=== PATIENT | male | born 1935 | race Native Hawaiian/Other Pacific Islander ===

== ENCOUNTER 2017-08-14 14:13 | Inpatient (IN) | payer BC, MEDICARE ==
[2017-08-14 14:13] VITALS: BMI 30.1
[2017-08-14 15:44] LABS: BASO # 0.1 K/uL (0.0-0.2); BASO % 1.3 % (0.0-2.0); EOS % 0.6 % (0.0-4.0); HEMOGLOBIN 13.9 g/dL (12.0-18.0); LYMPH # 0.8 K/uL (1.0-4.3); LYMPH % 16.1 % (20.0-40.0); MEAN CORPUSCULAR HEMOGLOBIN 31.2 pg (27.0-31.0); MEAN CORPUSCULAR HGB CONC 34.1 g/dL (33.0-37.0); MEAN PLATELET VOLUME 7.6 fL (7.2-11.7); MONO # 0.2 K/uL (0.0-0.8); MONO % 4.8 % (0.0-10.0); NEUT # 3.9 K/uL (1.8-7.0); NEUT % 77.2 % (50.0-75.0); RBC 4.46 Mil/uL (4.40-5.90); RED CELL DISTRIBUTION WIDTH 15.7 % (11.5-14.5); WHITE BLOOD COUNT 5.1 K/uL (4.8-10.8)
[2017-08-14 15:45] LABS: MEAN CELL VOLUME 91.4 fL (80.0-94.0)
[2017-08-14 15:52] LABS: PROTHROMBIN TIME 11.4 SECONDS (9.7-12.2)
[2017-08-14 16:02] LABS: ALB/GLOB RATIO 1.2 (1.0-2.1); ALBUMIN 3.9 g/dL (3.5-5.0); ALT/SGPT 15 U/L (21-72); AST/SGOT 21 U/L (17-59); BLOOD UREA NITROGEN 22 mg/dL (9-20); CALCIUM 8.9 mg/dl (8.6-10.4); GFR AFRICAN-AMERICAN > 60; GFR NON-AFRICAN AMERICAN > 60
--- NOTE | 2017-08-14 16:11 | C.PDOC ---
History Of Present Illness 82-year-old male presents to the emergency department for evaluation after episode of feeling light headed, with nausea, and non-bloody/non-bilious vomiting at 13:00. Patient states he felt images on television suddenly became blurry. He denies chest pain, palpitations, shortness of breath, extremity weakness, facial droop, sensory changes, slurred speech, fever. Family at bedside in agreement. 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 Constitutional: Negative for: Fever Eyes: Positive for: Vision Change Cardiovascular: Positive for: Light Headedness. Negative for: Chest Pain, Palpitations Respiratory: Negative for: Shortness of Breath Gastrointestinal: Positive for: Nausea, Vomiting. Negative for: Abdominal Pain , Diarrhea Genitourinary: Negative for: Dysuria, Hematuria Musculoskeletal: Negative for: Neck Pain, Back Pain Skin: Negative for: Rash Neurological: Negative for: Weakness, Numbness, Incoordination, Change in Speech , Confusion, Seizures, Altered Mental Status, Headache, Dizziness Physical Exam - Physical Exam Appears: Well, Non-toxic, No Acute Distress Skin: Warm, Dry, No Rash Head: Normacephalic Eye(s): bilateral: Normal Inspection, PERRL, EOMI Nose: Normal Oral Mucosa: Moist Neck: Normal, Normal ROM, Supple Cardiovascular: Rhythm Regular (bradycardic ), No Murmur Respiratory: Normal Breath Sounds, No Rales, No Rhonchi, No Wheezing Gastrointestinal/Abdominal: Normal Exam, Bowel Sounds, Soft, No Tenderness Extremity: Normal ROM, No Pedal Edema, No Calf Tenderness Pulses: Left Dorsalis Pedis: Normal, Right Dorsalis Pedis: Normal Neurological/Psych: Oriented x3, Normal Speech, Normal Cognition, Normal Cranial Nerves (II-XII intact), No Cerebellar Signs, Normal Motor, Normal Sensation, No Dysarthria ED Course And Treatment - Laboratory Results Result Diagrams: 08/15/17 06:49 08/15/17 06:49 ECG: Interpreted By Me, Viewed By Me (sinus bradycardia 55bpm, left axis deviation, T wave inversions V5, V6, no acute ST changes) ECG Interpretation: Abnormal O2 Sat by Pulse Oximetry: 95 (RA) Pulse Ox Interpretation: Normal - CT Scan/US CT HEAD Other Rad Studies (CT/US): Read By Radiologist, Radiology Report Reviewed CT/US Interpretation: Accession No. : [id number]. Patient Name / ID : JESSICA WILSON / [id number]. Exam Date : 08/14/2017 15:51:23 ( Approved ). Study Comment : Sex / Age : M / [id number]. Creator : Arely Sotelo. Dictator : Lisa Jacobsen MD. Coremaker Experimental : Lacquer Sprayer : Lisa Jacobsen MD. Approver2 : Report Date : 08/14/2017 16:04:47. My Comment : . This report is currently processing and HAS NOT BEEN OFFICIALLY SIGNED BY THE PHYSICIAN - ESTIMATED TIME OF APPROVAL IS 08/14/2017 16:15. PROCEDURE: CT HEAD WITHOUT CONTRAST. HISTORY: Dizziness nausea and vomiting. COMPARISON: 05/01/2015. TECHNIQUE: Axial computed tomography images were obtained through the head/ brain without intravenous contrast. Radiation dose: Total exam DLP = 988.14 mGy-cm. This CT exam was performed using one or more of the following dose reduction techniques: Automated exposure control, adjustment of the mA and/or kV according to patient size, and/or use of iterative reconstruction technique. FINDINGS: HEMORRHAGE: No intracranial hemorrhage. BRAIN: There are severe chronic microangiopathic changes. There are old lacunar infarctions in the alfaro radiata, bilateral basal ganglia and left thalamus. There is no mass, mass effect or abnormal extra-axial fluid collection. There are advanced atherosclerotic calcifications in the cavernous carotid and vertebral arteries. VENTRICLES: There is moderate age-related global parenchymal volume loss and proportionate enlargement of the ventricles and cortical sulci. CALVARIUM: The skull base and calvarium are normal. PARANASAL SINUSES: Predominantly clear nges. MASTOID AIR CELLS: Predominantly clear. OTHER FINDINGS: None. IMPRESSION: No acute intracranial abnormality. Severe chronic microangiopathic changes and moderate age-related global parenchymal volume loss. 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 Progress Note: Blood work, CT Head, EKG ordered and reviewed. Patient given PO ASA. - Physician Consult Information Physician Contacted: Ian Koenig Outcome Of Conversation: Discussed patient with PMD, agrees patient likely has TIA. Will admit to his service for TIA, bradycardia. NIHSS Stroke Scale 2 - Date/Time Evaluation Performed Date Performed: 08/14/17 Time Performed: 15:15 When Was NIHSS Performed: Baseline - How Severe is the Stroke Level of Consciousness: 0=Alert LOC to Questions: 0=Both comments correct LOC to commands: 0=Obeys both correctly Best Gaze: 0=Normal Visual: 0=No visual loss Facial: 0=Normal Motor Arm - Left: 0=No drift Motor Arm - Right: 0=No drift Motor Leg - Left: 0=No drift Motor Leg - Right: 0=No drift Limb Ataxia: 0=Absent Sensory: 0=Normal Best Language: 0=No aphasia Dysarthia: 0=Normal articulation Extinction & Inattention (Neglect): 0=Normal, no object Score: 0 rTPA Inclusion/Exclusion - Refusal of Treatment Patient Refused Treatment: No - Inclusion Criteria for Altepase Patient is 18 years or Older: Yes The Clinical Diagnosis of Ischemic Stroke That is Causing a Potentially Disabling Neurological Deficit: No Time of Onset is Well Established to be Less Than 270 Minute Before Treatment Would Begin: Yes Risk/Benefit Discussed With Patient/Family Member Present: No Disposition - Disposition Disposition: HOSPITALIZED Disposition Time: 16:48 Condition: STABLE - Clinical Impression Clinical Impression: TIA (transient ischemic attack), Sinus bradycardia, Blurry vision, Dizziness - Scribe Statement The provider has reviewed the documentation as recorded by the Scribe (Sterling Escamilla) All medical record entries made by the Scribe were at my direction and personally dictated by me. I have reviewed the chart and agree that the record accurately reflects my personal performance of the history, physical exam, medical decision making, and the department course for this patient. I have also personally directed, reviewed, and agree with the discharge instructions and disposition. Decision To Admit - Pt Status Changed To: Hospital Disposition Of: Inpatient - Admit Certification Admit to Inpatient:: After my assessment, the patient will require hospitalization for at least two midnights. This is because of the severity of symptoms shown, intensity of services needed, and/or the medical risk in this patient being treated as an outpatient. - InPatient: Physician Admission Certification: I certify that this patient requires 2 or more midnights of care for the following reason:: see notes - . Bed Request Type: Telemetry Admitting Physician: Ian Koenig Patient Diagnosis: TIA (transient ischemic attack), Blurry vision, Dizziness, Sinus bradycardia
[2017-08-14 16:13] LABS: CK-MB 0.42 ng/mL (0.0-3.38)
[2017-08-14] MEDS: Enoxaparin 40 mg Syringe SC SCH (17:12)
[2017-08-14] MEDS ORDERED: Pantoprazole 40 mg EC Tab PO SCH (22:00)
[2017-08-14 22:17] LABS: CK-MB 0.35 ng/mL (0.0-3.38)
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
[2017-08-15 04:32] LABS: URINE BILIRUBIN NEGATIVE (NEGATIVE); URINE BLOOD NEGATIVE (NEGATIVE); URINE CLARITY Clear (Clear); URINE COLOR Yellow (YELLOW); URINE GLUCOSE (UA) 2+ mg/dL (Normal); URINE LEUKOCYTE ESTERASE NEG Leu/uL (Negative); URINE PROTEIN 1+ mg/dL (NEGATIVE); URINE UROBILINOGEN NORMAL mg/dL (0.2-1.0)
[2017-08-15 06:57] LABS: BASO # 0.1 K/uL (0.0-0.2); BASO % 1.2 % (0.0-2.0); EOS % 0.8 % (0.0-4.0); HEMOGLOBIN 13.2 g/dL (12.0-18.0); LYMPH # 1.3 K/uL (1.0-4.3); MEAN CELL VOLUME 91.9 fL (80.0-94.0); MEAN CORPUSCULAR HGB CONC 33.8 g/dL (33.0-37.0); MEAN PLATELET VOLUME 7.3 fL (7.2-11.7); MONO # 0.3 K/uL (0.0-0.8); MONO % 5.2 % (0.0-10.0); NEUT # 3.7 K/uL (1.8-7.0); NEUT % 68.8 % (50.0-75.0); RBC 4.26 Mil/uL (4.40-5.90); RED CELL DISTRIBUTION WIDTH 15.6 % (11.5-14.5); WHITE BLOOD COUNT 5.3 K/uL (4.8-10.8)
[2017-08-15 07:10] LABS: ALB/GLOB RATIO 1.2 (1.0-2.1); ALBUMIN 3.5 g/dL (3.5-5.0); ALT/SGPT 18 U/L (21-72); AST/SGOT 18 U/L (17-59); BLOOD UREA NITROGEN 21 mg/dL (9-20); CALCIUM 8.2 mg/dl (8.6-10.4); GFR AFRICAN-AMERICAN > 60; GFR NON-AFRICAN AMERICAN > 60
[2017-08-15 07:18] LABS: B-TYPE NATRIURETIC PEPTIDE 73.4 pg/mL (0-900)
--- NOTE | 2017-08-15 07:50 | RAD ---
Chest x-ray two views History: Bradycardia. Comparison: 05/03/2015 Findings: Biapical pleural thickening with upper lobe granulomatous changes. Mild venous congestion. Calcification at the aortic knob. Tortuous ectatic and prominent aorta. Mild cardiomegaly. Degenerative changes in the spine and shoulders. Impression: Biapical pleural thickening with upper lobe granulomatous changes. Mild venous congestion. Calcification at the aortic knob. Tortuous ectatic and prominent aorta. Mild cardiomegaly.
[2017-08-15] MEDS: Enoxaparin 40 mg Syringe SC SCH (10:30)
--- NOTE | 2017-08-15 13:07 | VASCLAB ---
PROCEDURE: HISTORY: dizziness, bradycardia COMPARISON: None available. TECHNIQUE: Grayscale and duplex Doppler evaluation of the cervical carotid and vertebral arteries were performed. The common carotid, carotid bifurcations and cervical Internal Carotid Artery (ICA) and proximal External Carotid Artery (ECA) were evaluated. The vertebral arteries were evaluated for gross patency and flow direction. Report prepared by Joseph Torres, BS, RVT FINDINGS: RIGHT CAROTID ARTERIES: 1. Common Carotid Artery: No significant focal plaque formation of the right common carotid artery. Maximum Peak Systolic velocity: 72 cm/sec: End-diastolic velocity 0 cm/sec. 2. Carotid Bifurcation: plaque formation. Maximum Peak Systolic velocity: 75 cm/sec: End-diastolic velocity 5 cm/sec. 3. Internal Carotid Artery: Calcific plaque Plaque description: 3.1. Proximal Segment: Peak systolic velocity 95 cm/sec: End-diastolic velocity 12 cm/sec - % stenosis 0-15% 3.2. Middle Segment: Peak systolic velocity 40 cm/sec: End-diastolic velocity 6 cm/sec - % stenosis 0-15% 3.3. Distal Segment: Peak systolic velocity 46 cm/sec: End-diastolic velocity 9 cm/sec - % stenosis 0-15% 4. External Carotid Artery: Calcific plaque. Peak systolic velocity 109 cm/sec 5. ICA/CCA Ratio: 1.3 LEFT CAROTID ARTERIES: 1. Common Carotid Artery: No significant focal plaque formation of the left common carotid artery. Maximum Peak Systolic velocity: 74 cm/sec: End-diastolic velocity 6 cm/sec. 2. Carotid Bifurcation: plaque formation. Maximum Peak Systolic velocity: 62 cm/sec: End-diastolic velocity 0 cm/sec. 3. Internal Carotid Artery: Calcific plaque Plaque description: 3.1. Proximal Segment: Peak systolic velocity 48 cm/sec: End-diastolic velocity 11 cm/sec - % stenosis 0-15% 3.2. Middle Segment: Peak systolic velocity 34 cm/sec: End-diastolic velocity 7 cm/sec - % stenosis 0-15% 3.3. Distal Segment: Peak systolic velocity 78 cm/sec: End-diastolic velocity 15 cm/sec - % stenosis 0-15% 4. External Carotid Artery: Calcific plaque. Peak systolic velocity 116 cm/sec 5. ICA/CCA Ratio: 1.1 VERTEBRAL ARTERIES: 1. Right Vertebral Artery: The right vertebral artery flow direction is antegrade. 2. Left Vertebral Artery: The left vertebral artery flow direction is antegrade. OTHER FINDINGS: 1. Right Brachial Blood pressure: 182 mmHg. 2. Left Brachial Blood pressure: mmHg. IMPRESSION: RIGHT: Duplex scan does not suggest hemodynamically significant stenosis of the right extracranial carotid arteries. LEFT: Duplex scan does not suggest hemodynamically significant stenosis of the left extracranial carotid arteries.
--- NOTE | 2017-08-15 13:30 | RAD ---
HISTORY: rule out obstruction COMPARISON: Abdominal radiographs dated 05/10/2015. FINDINGS: BOWEL: Prominent amount of retained colonic stool. No obstruction. BONES: Normal. OTHER FINDINGS: Small calcifications overlying the bilateral renal shadows, unchanged. Radiation prostate seeds, unchanged. IMPRESSION: Prominent amount of retained colonic stool. No evidence of obstruction. Stable small calcifications overlying the bilateral renal shadows.
[2017-08-15 13:32] LABS: AMYLASE 90 U/L (30-110); GAMMA GLUTAMYL TRANSPEPTIDASE 16 U/L (8-78); LIPASE 66 U/L (23-300)
[2017-08-15 14:34] LABS: HDL CHOLESTEROL 40 mg/dL (30-70)
[2017-08-15 14:45] LABS: LDL CHOLESTEROL 98 mg/dL (0-129)
[2017-08-15] MEDS: Sucralfate 1 gm/10 ml Oral Susp UD PO SCH (16:18)
--- NOTE | 2017-08-15 21:19 | CP.PCM.PN ---
Subjective - Date & Time of Evaluation Date of Evaluation: 08/15/17 Time of Evaluation: 18:30 - Subjective Subjective: Pt seen and examined at bedside. Pt had episode of vomiting again this am and after lunch. Started pt on sucralfate, and optimized PPI. No episode of vomiting with dinner. Started pt on lactulose after flat plate of abdomen showed significant amount of retained stool with no evidence of obstruction. Pancreatic enzymes ordered as well. > BP a little better but still has episodes of large swings in BP. Objective - Vital Signs/Intake and Output Vital Signs (last 24 hours): Temp Pulse Resp BP Pulse Ox 97.5 F L 53 L 14 121/63 93 L 08/15/17 20:00 08/15/17 20:00 08/15/17 20:00 08/15/17 20:00 08/15/17 20:00 Intake and Output: 08/15/17 08/16/17 18:59 06:59 Intake Total 160 Output Total 300 Balance -140 - Medications Medications: Current Medications Ciprofloxacin (Cipro) 500 mg PO BID [facility] PRN Reason: Protocol Stop: 08/16/17 18:01 Last Admin: 08/15/17 18:07 Dose: 500 mg Enoxaparin Sodium (Lovenox) 40 mg SC DAILY [facility] Last Admin: 08/15/17 10:30 Dose: 40 mg Famotidine (Pepcid) 20 mg IVP PCL [facility] Isosorbide Mononitrate (Imdur Er) 30 mg PO DAILY [facility] Last Admin: 08/15/17 10:29 Dose: 30 mg Losartan Potassium (Cozaar) 100 mg PO DAILY [facility] Last Admin: 08/15/17 10:29 Dose: 100 mg Metoclopramide HCl (Reglan) 10 mg IVP AC [facility] Stop: 08/17/17 11:31 Last Admin: 08/15/17 16:17 Dose: 10 mg Ondansetron HCl (Zofran Inj) 4 mg IVP Q6H PRN PRN Reason: Nausea/Vomiting Oxybutynin Chloride (Ditropan Tab) 5 mg PO DAILY [facility] Last Admin: 08/15/17 10:30 Dose: 5 mg Pantoprazole Sodium (Protonix Inj) 40 mg IVP DAILY [facility] Rosuvastatin Calcium (Crestor) 5 mg PO HS [facility] Last Admin: 08/14/17 22:59 Dose: 5 mg Sucralfate (Carafate Oral Susp) 1 gm PO TIDAC SHIRA Last Admin: 08/15/17 16:18 Dose: 1 gm - Labs Labs: 08/15/17 06:49 08/15/17 06:49 PT 11.4 SECONDS (9.7-12.2) 08/14/17 15:40 INR 1.0 08/14/17 15:40 APTT 32 SECONDS (21-34) 08/14/17 15:40 - Constitutional Appears: No Acute Distress - Head Exam Head Exam: NORMAL INSPECTION - Eye Exam Eye Exam: Normal appearance - ENT Exam ENT Exam: Normal Exam - Neck Exam Neck Exam: Normal Inspection - Respiratory Exam Respiratory Exam: Clear to Ausculation Bilateral, NORMAL BREATHING PATTERN - Cardiovascular Exam Cardiovascular Exam: REGULAR RHYTHM - GI/Abdominal Exam GI & Abdominal Exam: Soft, Hypoactive Bowel Sounds - Rectal Exam Rectal Exam: Deferred - Back Exam Back Exam: NORMAL INSPECTION - Neurological Exam Neuro motor strength exam: Left Upper Extremity: 4, Right Upper Extremity: 4, Left Lower Extremity: 4, Right Lower Extremity: 4 - Psychiatric Exam Psychiatric exam: Normal Affect, Normal Mood - Skin Skin Exam: Dry, Intact, Normal Color, Warm Assessment and Plan (1) Dizziness Assessment & Plan: still unresolved, had cut out all meds that may cause dizziness or postural hypotension oxybutynin which is an anticholinergic Status: Acute (2) Vomiting alone Assessment & Plan: still present though more prominent with weals. cut out nsaid and other gastric irritants, observe Status: Acute (3) Sinus bradycardia Assessment & Plan: appears to happen mainly when relaxed and sleeping; HR climbs up to 60s now after dc of beta nelson Status: Acute (4) Hypertension, uncontrolled Assessment & Plan: with occasional severe elevations; correlate with pt activity or symptoms and request nursing to document Status: Chronic (5) Diabetes mellitus Assessment & Plan: pt must be eating better with BS going up to 200s now. Status: Chronic
[2017-08-16] MEDS: Sucralfate 1 gm/10 ml Oral Susp UD PO SCH ×3 (07:57→15:37)
[2017-08-16] MEDS: Enoxaparin 40 mg Syringe SC SCH (10:16)
--- NOTE | 2017-08-16 15:11 | CARD ---
APPROVED REPORT EXAM: Two-dimensional and M-mode echocardiogram with Doppler and color Doppler. Other Information Quality : AverageRhythm : NSR INDICATION Abnormal EKG/Arrhythmia CAD RISK FACTORS Hypertension Diabetes M-Mode DIMENSIONS RVDd1.62 (2.1-3.2cm)Left Atrium (MM)4.06 (2.5-4.0cm) IVSd0.77 (0.7-1.1cm)Aortic Root3.47 (2.2-3.7cm) LVDd5.49 (4.0-5.6cm)Aortic Cusp Exc.1.29 (1.5-2.0cm) PWd0.89 (0.7-1.1cm)FS (%) 42 % LVDs3.21 (2.0-3.8cm)LVEF (%)72 (>50%) Aortic Valve AoV Peak Yxmcnlzt289.3cm/[place] Peak GR.6mmHg Mitral Valve MV E Denwpgrj10.8cm/sMV A Rgfwkegn07.0cm/sE/A ratio0.6 TDI E/Lateral E'0.0E/Medial E'0.0 Tricuspid Valve TR Peak Qmyhqkzv802ly/sTR Peak Gr.[id number] LEFT VENTRICLE There is normal left ventricular wall thickness. The left ventricular systolic function is normal. The left ventricular ejection fraction is within the normal range. There is normal LV segmental wall motion. Transmitral Doppler flow pattern is Grade I-abnormal relaxation pattern. Normal left atrial pressure by Tissue Doppler. RIGHT VENTRICLE The right ventricle is normal size. The right ventricular systolic function is normal. ATRIA Normal left atrial index. The right atrium size is normal. AORTIC VALVE The aortic valve is normal in structure. No aortic regurgitation is present. MITRAL VALVE The mitral valve is normal in structure. There is no mitral valve regurgitation noted. TRICUSPID VALVE There is trace to mild tricuspid regurgitation. Right ventricular systolic pressure is estimated at less than 30 mmHg. PULMONIC VALVE The pulmonary valve is probably normal in structure. There is trace to mild pulmonic valvular regurgitation. GREAT VESSELS The aortic root is normal in size. The IVC was not visualized. PERICARDIAL EFFUSION There is no pericardial effusion. <Conclusion> The left ventricular systolic function is normal. There is normal LV segmental wall motion. Transmitral Doppler flow pattern is Grade I-abnormal relaxation pattern but, it may be nromal variant for age. Normal left atrial pressure by Tissue Doppler. The right ventricular systolic function is normal. No significant valvular abnormality. No pericardial effusion.
--- NOTE | 2017-08-16 23:45 | CP.PCM.PN ---
Subjective - Date & Time of Evaluation Date of Evaluation: 08/16/17 Time of Evaluation: 16:00 - Subjective Subjective: Pt had no BM since yesterday and requested nurse on duty for something to help him with BM. Ok'd re-start of lactulose and continuation of metoclopramide on a limited basis. Will continue to observe. > Pt's had less episodes of vomiting today: none this AM, 1 episode soon after lunch though of less qty than the day before. Had started pt on H2 nelson on top of his PPI and prokinetic med. > Pt's BP remains erratic: approaching 200s one time, and in the low 100s at others. Appears to coincide with the decrease in his heart rate. Question of inabiity of sympathetic system to respond to pt's sudden postural changes, whether this is postural in nature, or iatrogenic 2ndry to pt's meds. Pt only on ARB at this point, which, in theory, should not affect pt's adrenergic response to changes in position. Will ask family to bring in home BP med to mimic home conditions. Objective - Vital Signs/Intake and Output Vital Signs (last 24 hours): Temp Pulse Resp BP Pulse Ox 98.3 F 67 16 165/70 H 97 08/16/17 20:00 08/16/17 20:00 08/16/17 20:00 08/16/17 20:00 08/16/17 20:00 Intake and Output: 08/16/17 08/17/17 18:59 06:59 Intake Total 250 Output Total 300 Balance -50 - Medications Medications: Current Medications Enoxaparin Sodium (Lovenox) 40 mg SC DAILY [facility] Last Admin: 08/16/17 10:16 Dose: 40 mg Famotidine (Pepcid) 20 mg IVP PCL [facility] Last Admin: 08/16/17 12:04 Dose: 20 mg Isosorbide Mononitrate (Imdur Er) 30 mg PO DAILY [facility] Last Admin: 08/16/17 10:17 Dose: 30 mg Lactulose (Enulose) 20 gm PO Q8H [facility] Last Admin: 08/16/17 19:41 Dose: 20 gm Losartan Potassium (Cozaar) 100 mg PO DAILY [facility] Last Admin: 08/16/17 10:16 Dose: 100 mg Metoclopramide HCl (Reglan) 10 mg IVP AC [facility] Stop: 08/17/17 11:31 Last Admin: 08/16/17 15:37 Dose: 10 mg Ondansetron HCl (Zofran Inj) 2 mg IVP Q6H PRN PRN Reason: Nausea/Vomiting Last Admin: 08/16/17 07:57 Dose: 2 mg Oxybutynin Chloride (Ditropan Tab) 5 mg PO DAILY [facility] Last Admin: 08/16/17 10:17 Dose: 5 mg Pantoprazole Sodium (Protonix Inj) 40 mg IVP DAILY [facility] Last Admin: 08/16/17 10:16 Dose: 40 mg Rosuvastatin Calcium (Crestor) 5 mg PO HS [facility] Last Admin: 08/14/17 22:59 Dose: 5 mg Sucralfate (Carafate Oral Susp) 1 gm PO TIDAC [facility] Last Admin: 08/16/17 15:37 Dose: 1 gm - Labs Labs: 08/15/17 06:49 08/15/17 06:49 PT 11.4 SECONDS (9.7-12.2) 08/14/17 15:40 INR 1.0 08/14/17 15:40 APTT 32 SECONDS (21-34) 08/14/17 15:40 - Constitutional Appears: No Acute Distress - Head Exam Head Exam: NORMAL INSPECTION - Eye Exam Eye Exam: Normal appearance - ENT Exam ENT Exam: Normal Exam - Neck Exam Neck Exam: Normal Inspection - Respiratory Exam Respiratory Exam: NORMAL BREATHING PATTERN - Cardiovascular Exam Cardiovascular Exam: REGULAR RHYTHM - GI/Abdominal Exam GI & Abdominal Exam: Soft, Hypoactive Bowel Sounds - Rectal Exam Rectal Exam: Deferred - Extremities Exam Extremities Exam: Full ROM, Normal Capillary Refill - Back Exam Back Exam: NORMAL INSPECTION - Neurological Exam Neurological Exam: Abnormal Gait, CN II-XII Intact, Oriented x3 Neuro motor strength exam: Left Upper Extremity: 4, Right Upper Extremity: 4, Left Lower Extremity: 4, Right Lower Extremity: 4 - Psychiatric Exam Psychiatric exam: Normal Affect, Normal Mood - Skin Skin Exam: Dry, Intact, Normal Color Assessment and Plan (1) Sinus bradycardia Assessment & Plan: only in quiet moments, pr rising Status: Acute (2) Vomiting alone Assessment & Plan: decreasing episodes and time, appears clinically improving Status: Acute (3) Diabetes mellitus Assessment & Plan: BS rising, but not excessive Status: Chronic (4) Hypertension, uncontrolled Status: Chronic - Assessment and Plan (Free Text) Assessment: still labile.
[2017-08-17 06:42] LABS: BASO % 0.4 % (0.0-2.0); EOS % 0.1 % (0.0-4.0); HEMOGLOBIN 13.1 g/dL (12.0-18.0); LYMPH # 0.7 K/uL (1.0-4.3); LYMPH % 11.6 % (20.0-40.0); MEAN CORPUSCULAR HGB CONC 33.7 g/dL (33.0-37.0); MEAN PLATELET VOLUME 7.9 fL (7.2-11.7); MONO # 0.5 K/uL (0.0-0.8); MONO % 7.7 % (0.0-10.0); NEUT # 5.1 K/uL (1.8-7.0); NEUT % 80.2 % (50.0-75.0); NRBC % 0.1 % (0.0-2.0); RBC 4.23 Mil/uL (4.40-5.90); RED CELL DISTRIBUTION WIDTH 15.6 % (11.5-14.5); WHITE BLOOD COUNT 6.4 K/uL (4.8-10.8)
[2017-08-17 07:03] LABS: ALB/GLOB RATIO 1.1 (1.0-2.1); ALBUMIN 3.6 g/dL (3.5-5.0); ALT/SGPT 18 U/L (21-72); AST/SGOT 25 U/L (17-59); BLOOD UREA NITROGEN 22 mg/dL (9-20); CALCIUM 8.1 mg/dl (8.6-10.4); GFR AFRICAN-AMERICAN > 60; GFR NON-AFRICAN AMERICAN > 60
[2017-08-17] MEDS: Sucralfate 1 gm/10 ml Oral Susp UD PO SCH ×3 (09:13→16:52)
[2017-08-17] MEDS: (Novolin R) Insulin Human Regular 100 units/ml vial SC SCH ×4 (09:13→22:00)
[2017-08-17] MEDS: Enoxaparin 40 mg Syringe SC SCH (09:13)
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
--- NOTE | 2017-08-17 17:11 | CARD ---
APPROVED REPORT EKG Measurement Heart [id number] <Conclusion> Sinus bradycardia Left axis deviation Nonspecific T wave abnormality Abnormal ECG
--- NOTE | 2017-08-17 18:54 | CP.PCM.PN ---
Subjective - Date & Time of Evaluation Date of Evaluation: 08/17/17 Time of Evaluation: 18:00 - Subjective Subjective: Starting at 7 am, pt went to the bathroom and developed lightheadedness again after a quiet night in bed. Pt was able to get back to bed under his own power, but remained lightheaded while in bed. Had requested night nurse on duty to document new set of vitals when pt gets his symptom to include, HR (low 60s, BP (SBP 120s), O2sat: 96, RBS: 220s. Suspecting that this was still a postural problem and a vascular response issue, I ordered a tilt-table test today. While awaiting the testing, orthostatics were obtained at bedside by Cardio organizational research consultant and nursing staff. Blood pressure, heart rate remained stable through the changes in position. Discussed the results with Cardio and though the bedside test for orthostatic VS changes nearly approximate the tilt-table test, I opined that that we had no definite diagnosis ruled in, despite many etiologies ruled out. A positive test on the tilt-table would be unequivocally the cause of the lightheadedness, but a negative would still allow caonsideration of other causes.. The tilt-table test result was negative. Of note was that patient's baseline heart rate was now in the 70s and remained at that level during all of these testings. In previous days when pt complained of lightheadedness the baseline was 41 on admission, and it steadily increased every day as the beta nelson washed out of his system. In my interview with patient at bedside, he said he feels good and has not had any episode of lightheadedness since this morning. I requested that patient's valsartan be brought from home so that we can mimic home conditions. Discussed with patient also possible subacute rehab in order to give us time to modify his insulin requirements since he apparently was getting too much of it at home. Patient agreed to go to subacute rehab and I recommended Pradeep Alberto for 1-2 weeks of strengthening and balance training. But since this is a Sunday and no preparations were made for subacute rehab transfer we will observe the patient through the weekend and if everything remains stable and appetite improves then we may possibly discharge him on Sunday or early Sunday. Patient is aware of this development as well as the daughter who will pass on the news to the other relatives of the patient. Objective - Vital Signs/Intake and Output Vital Signs (last 24 hours): Temp Pulse Resp BP Pulse Ox 98.6 F 76 19 183/88 H 94 L 08/17/17 17:01 08/17/17 17:01 08/17/17 17:01 08/17/17 17:01 08/17/17 17:01 Intake and Output: 08/17/17 08/17/17 06:59 18:59 Intake Total 200 600 Output Total 700 900 Balance -500 -300 - Medications Medications: Current Medications Enoxaparin Sodium (Lovenox) 40 mg SC DAILY [facility] Last Admin: 08/17/17 09:13 Dose: 40 mg Famotidine (Pepcid) 20 mg IVP PCL [facility] Last Admin: 08/17/17 14:43 Dose: 20 mg Insulin Human Regular (Novolin R) 0 unit SC ACHS [facility] PRN Reason: Protocol Last Admin: 08/17/17 16:50 Dose: 3 unit Lactulose (Enulose) 20 gm PO Q8H [facility] Last Admin: 08/17/17 11:28 Dose: 20 gm Losartan Potassium (Cozaar) 100 mg PO DAILY [facility] Last Admin: 08/17/17 09:14 Dose: 100 mg Ondansetron HCl (Zofran Inj) 2 mg IVP Q6H PRN PRN Reason: Nausea/Vomiting Last Admin: 08/16/17 07:57 Dose: 2 mg Oxybutynin Chloride (Ditropan Tab) 5 mg PO DAILY [facility] Last Admin: 08/17/17 09:14 Dose: 5 mg Rosuvastatin Calcium (Crestor) 5 mg PO HS [facility] Last Admin: 08/14/17 22:59 Dose: 5 mg - Labs Labs: 08/17/17 06:34 08/17/17 06:34 PT 11.4 SECONDS (9.7-12.2) 08/14/17 15:40 INR 1.0 08/14/17 15:40 APTT 32 SECONDS (21-34) 08/14/17 15:40 - Constitutional Appears: No Acute Distress - Head Exam Head Exam: NORMAL INSPECTION - Eye Exam Eye Exam: Normal appearance Pupil Exam: NORMAL ACCOMODATION - ENT Exam ENT Exam: Normal Exam - Neck Exam Neck Exam: Normal Inspection - Respiratory Exam Respiratory Exam: Clear to Ausculation Bilateral, NORMAL BREATHING PATTERN - Cardiovascular Exam Cardiovascular Exam: REGULAR RHYTHM - GI/Abdominal Exam GI & Abdominal Exam: Normal Bowel Sounds - Rectal Exam Rectal Exam: Deferred - Extremities Exam Extremities Exam: Full ROM, Normal Capillary Refill, Normal Inspection - Back Exam Back Exam: Full ROM, NORMAL INSPECTION - Neurological Exam Neurological Exam: Alert, Awake, CN II-XII Intact, Normal Gait, Oriented x3 Neuro motor strength exam: Left Upper Extremity: 4, Right Upper Extremity: 4, Left Lower Extremity: 4, Right Lower Extremity: 4 - Psychiatric Exam Psychiatric exam: Normal Affect, Normal Mood - Skin Skin Exam: Dry, Intact, Normal Color, Warm Assessment and Plan (1) Sinus bradycardia Assessment & Plan: except when asleep or resting Status: Resolved (2) Vomiting alone Status: Resolved (3) Diabetes mellitus Status: Chronic (4) Hypertension, uncontrolled Status: Chronic
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
[2017-08-17 21:10] LABS: FREE T4 1.82 ng/dL (0.78-2.19)
[2017-08-17 21:59] LABS: FOLATE > 20.0 ng/mL
--- NOTE | 2017-08-18 05:39 | CON ---
DATE: ATTENDING PHYSICIAN: Ian Koenig MD LOCATION: The patient's room number is ICU bed 4. REASON FOR CONSULTATION: Dizziness. CHIEF COMPLAINT: The patient was brought into [facility] with history of subacute process of dizziness associating with losing his balance. From neurological point of view, I was called into evaluate him for further management. HISTORY OF PRESENT ILLNESS: Mr. Willard Cabrales is an 82-year-old right-handed [place] male presenting with about a week history of dizziness. He describes that around the middle of the day, following drinking tea, he had abrupt onset of things moving in front of his eyes, feel lightheaded, and losing his balance. This episode is associated with vomiting as well. No history of double vision. No history of problem in swallow. No history of hearing difficulty. No history of focal weakness. However, the symptom is somewhat never had it before in the past. PAST MEDICAL HISTORY: Hypertension, dyslipidemia, tax-dduzqzf-gxugimiyb diabetes mellitus, history of gastroesophageal reflux disease. PERSONAL HISTORY: Denies smoking or alcohol use. ALLERGIES: NO KNOWN ALLERGIES. REVIEW OF SYSTEMS: Twelve-point system being reviewed. From neuro, dizziness and losing balance. MEDICATIONS: Losartan, Crestor, Ditropan, lactulose, Enulose, Novolin, famotidine, Zofran. PHYSICAL EXAMINATION: VITAL SIGNS: Blood pressure 183/88 with mean artery pressure of 119, respiratory rate 18, temperature 98.6, pulse rate 76. NECK: Supple. No carotid bruits. HEART: Sounds regular. CHEST: Fair air entry. EXTREMITIES: No edema in legs. NEUROLOGIC EXAMINATION: The patient is examined at the presence of his daughter. He is awake, alert, and oriented to person, place and time. He could able to give the history, the reason he was brought into the hospital. Speech is clear. Naming, repetition, fluency, comprehension all within normal. Cranial nerve examination: He keeps his left eye closed. Extraocular movement intact on left lateral gaze. The patient has horizontal diplopia. Vertical gaze is intact. No facial sensory deficit. No facial asymmetry. Hearing seems to be intact. Tongue is midline. Good gag. Motor examination: Outstretched hand with eyes closed, no drift noted. Power is symmetric on either side. Deep tendon reflexes biceps, brachialis, triceps, knees all are absent. Ankles are absent. Plantars are upgoing on the left side, right side was downgoing. Sensory examination: Grossly intact. No cortical or sensory loss. Mildly distal sensory motor neuropathy noted. Coordination: Navjpr-ggio-fsqadp test is intact. Gait: I make him to sit up in the bed, subjective dizziness, which was resolved in 1 minute, and on his standing, he kept his feet apart. On his eyes closed, he is falling back. He needs assistance of holding straight. On taking his hands up, he falls backward to the bed. He could not able to march in one place. His CAT scan which was reported as negative for bleed. EKG normal sinus rhythm. LABORATORY DATA: Blood work, WBC 6.4, hemoglobin 13.1, hematocrit 38.9, platelet 239. Sodium 138, potassium 3.7, chloride 101, bicarbonate of 27, BUN 22, creatinine 0.7, GFR more than 60, glucose 261. CONCLUSION: Mr. Willard Cabrales as per neurological examination is presenting with left lateral gaze diplopia associating with left Babinski sign and astasia abasia. Examination is consistent with possible right thalamic dysfunction versus left lower brainstem ischemia. Considering the CT of the head is normal, this is probably ischemic process secondary to his hypertension and poorly controlled diabetes mellitus. 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 RECOMMENDATIONS 1. He has been taking aspirin. He has been failing with aspirin, manifesting with neurological deficit. Consider adding Plavix in addition to statin and angiotensin receptor blockers. 2. Keep the mean artery pressure around 100. 3. Fall precaution. 4. Getting out of bed with the supervision only. Physical therapy to improve gait. The patient can be benefited on using a walker at present with the supervision. The patient has been discussed with admitting physician. The patient will be followed closely with you. Austen Toussaint MD
[2017-08-18] MEDS: (Novolin R) Insulin Human Regular 100 units/ml vial SC SCH ×4 (07:55→22:36)
[2017-08-18] MEDS: Enoxaparin 40 mg Syringe SC SCH (10:00)
[2017-08-18] MEDS ORDERED: Patient's Own Medication - Tablet/Capusle PO SCH (10:00)
--- NOTE | 2017-08-18 12:37 | MRI ---
PROCEDURE: MRI brain dated 08/18/2017 HISTORY: Right thalamic versus of lower brainstem stroke. COMPARISON: Comparison made with prior CT scan brain dated 08/14/2017 TECHNIQUE: Multi planar- multisequence MR images of the brain were obtained without intravenous contrast enhancement. FINDINGS: HEMORRHAGE: No acute parenchymal, subarachnoid nor extra-axial hemorrhage. No evidence of hemosiderin deposition seen on gradient echo weighted sequence. DWI: There are small rounded discrete areas of minor restricted diffusion in the in the region of the along the posteromedial left middle cerebellar peduncle and another in the right anterior alfaro radiata/ centrum semiovale junction boarding ventricle or surface. These findings felt to represent small subacute infarcts. Additionally, there are subtle areas of questionable restricted diffusion along the posterior parietal cortical regions bilaterally right greater than left part of which could be artifactual however the possibility of areas of subacute- chronic and/or reversal ischemia not completely excluded. Significant diffuse/confluent chronic periventricular white matter ischemic changes are again seen extending peripherally into the deep and subcortical regions of both cerebral hemispheres. Multiple more discrete infarct changes scattered about the deep and subcortical white matter as well as both basal nuclei and brainstem. Note made of exuberant dilated perivascular spaces within both basal nuclei ; such findings have been seen and described in cases of vascular dementia. Clinical correlation recommended. Significant atrophy. VENTRICLES: No obstructive hydrocephalus. CRANIUM: Calvarium appears grossly unremarkable intact ORBITS: Orbits and contents unremarkable PARANASAL SINUSES/MASTOIDS: Visualized paranasal on air complexes are not well-developed and currently well-aerated. VASCULAR SYSTEM: Visualized major vascular flow voids at skull base patent. OTHER FINDINGS: None. IMPRESSION: No acute intracranial hemorrhage. There are 2 discrete pain areas of restricted diffusion 1 in the region along the posteromedial left middle cerebellar peduncle and another in the right anterior superior frontal white matter bordering the ventricular surface consistent with subacute infarcts. Additionally, there are questionable faint restricted diffusion changes portions of the portions of the posterior superior parietal cortices which in part could represent artifact however the possibility of subacute to chronic ischemia or reversible ischemic changes not completely excluded. Extensive chronic white matter basal nuclei and lesser brainstem ischemic changes. There are findings both basal nuclei that have been seen and described in cases of vascular dementia however clinical correlation recommended. Significant atrophy. These findings discussed with Dr. Toussaint at approximately 12:25 p.m. with written down and read back verification.
--- NOTE | 2017-08-18 13:08 | RAD ---
HISTORY: History a venous congestion COMPARISON: Comparison chest 08/15/2017 TECHNIQUE: Chest PA and lateral FINDINGS: LUNGS: There appears to be some mild biapical fibronodular/scarring changes. PLEURA: No significant pleural effusion identified. No pneumothorax apparent. CARDIOVASCULAR: Sternotomy wires and CABG clips again noted. Heart size is upper limits of normal. OSSEOUS STRUCTURES: No significant abnormalities. VISUALIZED UPPER ABDOMEN: Normal. OTHER FINDINGS: None. IMPRESSION: Biapical fibronodular/scarring changes.
--- NOTE | 2017-08-18 13:10 | RAD ---
HISTORY: Assess for stool impaction, quantify stool COMPARISON: Comparison made with radiographs of the abdomen 08/15/2017 FINDINGS: BOWEL: Prominent amount of residual stool for spleen throughout the descending colon. BONES: Osseous structures appear intact. OTHER FINDINGS: Multiple small calcific densities seen overlying the renal silhouettes bilaterally Re- demonstrated are multiple prostatic radiation implant seeds overlying the symphysis IMPRESSION: No on. Findings consistent with mild constipation.
--- NOTE | 2017-08-19 03:35 | CP.PCM.PN ---
Subjective - Date & Time of Evaluation Date of Evaluation: 08/18/17 Time of Evaluation: 14:25 - Subjective Subjective: Pt doing much better today, with no episodes lightheadedness. Noted Neuro evaluation of possbile right thalamic dysfunction vs left brainstem ischemia. This is an evolving process that seems to have manifested only last night and continues to develop. Brain MRI ordered and confirms a subacute process ongoing. No dense paresis or motor disorder, aside from the subtle veering of pt 's gait to the R side. Otherwise, pt's appetite improving. > Pt also had 2 large BMs over the last 24 hours, and abdomen flat plate showed constipation from the splenic flexure and distally. This is improved from previous. > Discussed with pt and daughter plans after hospitalization and the adjustments to pt's meds that need to be finished. Suggested a 1-2 week stay at a subacute rehab should pt's recovery continue. We still need to work on his diabetes and hypertension. Pt and daughter agreed to this plan and advised that this may happen on Sunday if all things continue to improve. Objective - Vital Signs/Intake and Output Vital Signs (last 24 hours): Temp Pulse Resp BP Pulse Ox 98.5 F 64 8 L 179/90 H 97 08/18/17 23:52 08/19/17 03:08 08/19/17 03:08 08/19/17 03:11 08/19/17 03:08 Intake and Output: 08/18/17 08/19/17 18:59 06:59 Intake Total 900 240 Output Total 1100 250 Balance -200 -10 - Medications Medications: Current Medications Aspirin (Ecotrin) 81 mg PO DAILY [facility] Last Admin: 08/18/17 10:00 Dose: 81 mg Clopidogrel Bisulfate (Plavix) 75 mg PO DAILY [facility] Last Admin: 08/18/17 11:44 Dose: 75 mg Enoxaparin Sodium (Lovenox) 40 mg SC DAILY [facility] Last Admin: 08/18/17 10:00 Dose: 40 mg Famotidine (Pepcid) 20 mg IVP PCL [facility] Last Admin: 08/18/17 16:59 Dose: Not Given Home Med (Patient's Own Medication) 1 tab PO DAILY [facility] Last Admin: 08/18/17 10:00 Dose: 1 tab Insulin Human Regular (Novolin R) 0 unit SC [facility] PRN Reason: Protocol Last Admin: 08/18/17 22:36 Dose: Not Given Lactulose (Enulose) 20 gm PO Q8H [facility] Last Admin: 08/19/17 03:08 Dose: 20 gm Ondansetron HCl (Zofran Inj) 2 mg IVP Q6H PRN PRN Reason: Nausea/Vomiting Last Admin: 08/18/17 11:43 Dose: 2 mg Oxybutynin Chloride (Ditropan Tab) 5 mg PO DAILY [facility] Last Admin: 08/18/17 11:46 Dose: 5 mg Rosuvastatin Calcium (Crestor) 5 mg PO HS [facility] Last Admin: 08/14/17 22:59 Dose: 5 mg - Labs Labs: 08/17/17 06:34 08/17/17 06:34 PT 11.4 SECONDS (9.7-12.2) 08/14/17 15:40 INR 1.0 08/14/17 15:40 APTT 32 SECONDS (21-34) 08/14/17 15:40 - Constitutional Appears: No Acute Distress - Head Exam Head Exam: NORMAL INSPECTION - Eye Exam Eye Exam: Normal appearance - ENT Exam ENT Exam: Normal Exam - Neck Exam Neck Exam: Normal Inspection - Respiratory Exam Respiratory Exam: Clear to Ausculation Bilateral, NORMAL BREATHING PATTERN - Cardiovascular Exam Cardiovascular Exam: REGULAR RHYTHM - GI/Abdominal Exam GI & Abdominal Exam: Normal Bowel Sounds - Rectal Exam Rectal Exam: NORMAL INSPECTION - Exam Exam: NORMAL INSPECTION - Back Exam Back Exam: NORMAL INSPECTION - Neurological Exam Neuro motor strength exam: Left Upper Extremity: 4, Right Upper Extremity: 4, Left Lower Extremity: 3, Right Lower Extremity: 3 - Psychiatric Exam Psychiatric exam: Normal Affect, Normal Mood - Skin Skin Exam: Dry, Intact, Normal Color, Warm Assessment and Plan (1) Sinus bradycardia Status: Resolved (2) Vomiting alone Status: Resolved (3) Diabetes mellitus Assessment & Plan: will restart once a day insulin injections Status: Chronic (4) Hypertension, uncontrolled Assessment & Plan: on day 2 of valsartan 160 mg 1 tab po daily, BP better Status: Chronic
[2017-08-19] MEDS: (Novolin R) Insulin Human Regular 100 units/ml vial SC SCH ×4 (07:54→21:56)
[2017-08-19] MEDS: Enoxaparin 40 mg Syringe SC SCH (09:25)
[2017-08-19] MEDS: INSULIN DEGLUDEC 100 UNIT/ML SC SCH (22:08)
--- NOTE | 2017-08-19 23:21 | CP.PCM.PN ---
Subjective - Date & Time of Evaluation Date of Evaluation: 08/19/17 Time of Evaluation: 20:30 - Subjective Subjective: Patient seen and evaluated Dizziness resolved with cessation of bradycardia secondary to B blockers Tilt table test: Normal Vascular dementia and other neuro mgt as per PMD and Neurology Objective - Vital Signs/Intake and Output Vital Signs (last 24 hours): Temp Pulse Resp BP Pulse Ox 98.6 F 75 15 160/86 H 99 08/19/17 19:59 08/19/17 20:35 08/19/17 20:35 08/19/17 20:49 08/19/17 20:35 Intake and Output: 08/19/17 08/20/17 18:59 06:59 Intake Total 900 Output Total 800 Balance 100 - Medications Medications: Current Medications Aspirin (Ecotrin) 81 mg PO DAILY [facility] Last Admin: 08/19/17 09:24 Dose: 81 mg Clopidogrel Bisulfate (Plavix) 75 mg PO DAILY [facility] Last Admin: 08/19/17 09:25 Dose: 75 mg Enoxaparin Sodium (Lovenox) 40 mg SC DAILY [facility] Last Admin: 08/19/17 09:25 Dose: 40 mg Famotidine (Pepcid) 20 mg IVP PCL [facility] Last Admin: 08/19/17 12:14 Dose: 20 mg Home Med (Patient's Own Medication) 1 tab PO DAILY [facility] Last Admin: 08/19/17 09:26 Dose: 1 tab Home Med (Patient's Own Injectable) 20 unit SC HS [facility] Last Admin: 08/19/17 22:08 Dose: 20 unit Insulin Human Regular (Novolin R) 0 unit SC ACHS [facility] PRN Reason: Protocol Last Admin: 08/19/17 21:56 Dose: Not Given Lactulose (Enulose) 20 gm PO Q8H [facility] Last Admin: 08/19/17 18:46 Dose: Not Given Ondansetron HCl (Zofran Inj) 2 mg IVP Q6H PRN PRN Reason: Nausea/Vomiting Last Admin: 08/18/17 11:43 Dose: 2 mg Oxybutynin Chloride (Ditropan Tab) 5 mg PO DAILY [facility] Last Admin: 08/19/17 09:25 Dose: 5 mg Rosuvastatin Calcium (Crestor) 5 mg PO HS [facility] Last Admin: 08/14/17 22:59 Dose: 5 mg - Labs Labs: 08/17/17 06:34 08/17/17 06:34 PT 11.4 SECONDS (9.7-12.2) 08/14/17 15:40 INR 1.0 08/14/17 15:40 APTT 32 SECONDS (21-34) 08/14/17 15:40
--- NOTE | 2017-08-19 23:54 | CP.PCM.PN ---
Subjective - Date & Time of Evaluation Date of Evaluation: 08/19/17 Time of Evaluation: 19:15 - Subjective Subjective: Mr. Cabrales was seen at telemetry and examined at bedside have been doing well since Sunday had four major bowel movements and appetite is improved. Patient's blood sugar has also started climbing and currently averaging around 242-60 during his Accu checks. at bedside and reports that pt had ambulated 3x around the unit today, after which he had to defecate. Had been having trouble moving his bowels and had been wondering why. Pt took some prune juice in addition to his tid lactulose, and finally had his BM. Pt had 4 large BM. Educated pt on stimuli that produce bowel movements. Patient and were asking whether they needed to go to [facility]. Explained to the couple that we are still easing in his home medications and that knowing them as i do, they carmella become afraid of what had happened and will be bouncing back to the hospital. I reassured patient and family that patient will probably be staying there at the most two weeks if not less inasmuch as he is also ambulating a fair distance. His goals of therapy will essentially be to build up his upper body strength so that he can use a walker and be able to support himself should any balance issues present. Patient also reports that his diplopia continues and explained to him why this was so. Advised him against covering his eye completely and permanently as this will negate any chance of patient beginning or rebuilding his optic pathways and muscle control of his eyeball. Patient verbalized understanding Objective - Vital Signs/Intake and Output Vital Signs (last 24 hours): Temp Pulse Resp BP Pulse Ox 98.6 F 75 15 160/86 H 99 08/19/17 19:59 08/19/17 20:35 08/19/17 20:35 08/19/17 20:49 08/19/17 20:35 Intake and Output: 08/19/17 08/20/17 18:59 06:59 Intake Total 900 Output Total 800 Balance 100 - Medications Medications: Current Medications Aspirin (Ecotrin) 81 mg PO DAILY [facility] Last Admin: 08/19/17 09:24 Dose: 81 mg Clopidogrel Bisulfate (Plavix) 75 mg PO DAILY [facility] Last Admin: 08/19/17 09:25 Dose: 75 mg Enoxaparin Sodium (Lovenox) 40 mg SC DAILY [facility] Last Admin: 08/19/17 09:25 Dose: 40 mg Famotidine (Pepcid) 20 mg IVP PCL [facility] Last Admin: 08/19/17 12:14 Dose: 20 mg Home Med (Patient's Own Medication) 1 tab PO DAILY [facility] Last Admin: 08/19/17 09:26 Dose: 1 tab Home Med (Patient's Own Injectable) 20 unit SC HS [facility] Last Admin: 08/19/17 22:08 Dose: 20 unit Insulin Human Regular (Novolin R) 0 unit SC ACHS [facility] PRN Reason: Protocol Last Admin: 08/19/17 21:56 Dose: Not Given Lactulose (Enulose) 20 gm PO Q8H [facility] Last Admin: 08/19/17 18:46 Dose: Not Given Ondansetron HCl (Zofran Inj) 2 mg IVP Q6H PRN PRN Reason: Nausea/Vomiting Last Admin: 08/18/17 11:43 Dose: 2 mg Oxybutynin Chloride (Ditropan Tab) 5 mg PO DAILY [facility] Last Admin: 08/19/17 09:25 Dose: 5 mg Rosuvastatin Calcium (Crestor) 5 mg PO [facility] Last Admin: 08/14/17 22:59 Dose: 5 mg - Labs Labs: 08/17/17 06:34 08/17/17 06:34 PT 11.4 SECONDS (9.7-12.2) 08/14/17 15:40 INR 1.0 08/14/17 15:40 APTT 32 SECONDS (21-34) 08/14/17 15:40 - Constitutional Appears: No Acute Distress - Head Exam Head Exam: NORMAL INSPECTION - Eye Exam Eye Exam: Normal appearance Additional comments: exotropic on L eye - ENT Exam ENT Exam: Mucous Membranes Moist, Normal Exam - Neck Exam Neck Exam: Normal Inspection - Respiratory Exam Respiratory Exam: Clear to Ausculation Bilateral, NORMAL BREATHING PATTERN - Cardiovascular Exam Cardiovascular Exam: REGULAR RHYTHM ( ) - GI/Abdominal Exam GI & Abdominal Exam: Normal Bowel Sounds - Rectal Exam Rectal Exam: Deferred - Extremities Exam Extremities Exam: Normal Capillary Refill, Normal Inspection - Back Exam Back Exam: NORMAL INSPECTION - Neurological Exam Neurological Exam: Alert, Awake, CN II-XII Intact, Normal Gait, Oriented x3 Neuro motor strength exam: Left Upper Extremity: 3, Right Upper Extremity: 3, Left Lower Extremity: 3, Right Lower Extremity: 3 - Psychiatric Exam Psychiatric exam: Normal Affect, Normal Mood - Skin Skin Exam: Dry, Intact, Normal Color, Warm Assessment and Plan (1) Sinus bradycardia Assessment & Plan: improved Status: Resolved (2) Diabetes mellitus Status: Chronic (3) Hypertension, uncontrolled Assessment & Plan: improving Status: Chronic (4) CVA (cerebral vascular accident) Assessment & Plan: resulted in diplopia and gait veering to the right Status: Acute
[2017-08-20] MEDS: (Novolin R) Insulin Human Regular 100 units/ml vial SC SCH ×4 (07:52→22:00)
[2017-08-20] MEDS: Enoxaparin 40 mg Syringe SC SCH (09:15)
--- NOTE | 2017-08-20 11:07 | PN ---
DATE: 08/20/2017 TIME OF EVALUATION: 7 o'clock a.m. NEUROLOGICAL PROBLEM: Multifocal cerebral dysfunction manifesting with left brainstem dysfunction and bilateral cerebral dysfunction. PHYSICAL EXAMINATION: GENERAL: The patient is sleeping, easily arousable on calling his last name, he moves all four extremities against gravity. VITAL SIGNS: Blood pressure 147/64, mean artery pressure of 89, respiratory rate 14, temperature afebrile with pulse rate 64. HEENT: Extraocular movement again shows left lateral gaze, horizontal diplopia, which is not resolved yet. CARDIOPULMONARY: Pulmonary functions are normal. He moves all four extremities against gravity, areflexic. Plantars are upgoing on both sides. LABORATORY DATA: MRI of the brain has been reviewed and discussed with the radiologist as per neurological examination. The patient does have right subcortical dysfunction and left lower brainstem dysfunction, manifesting with his current neurological deficit. RECOMMENDATIONS: 1. Continue antiplatelets, angiotensin receptor blockers with statin. 2. Diabetic control. 3. He is a good candidate for acute rehabilitation. 4. The patient should have polysomnogram, which should be done as outpatient, which can be helping to rule in or out sleep-related breathing disorder, which may be another confounding risk factors could be the cause for his problem. 5. His MRI shows significant atrophy with multiple periventricular ishemic changes consistent with possible vascular dementia; however, clinically he is not demented for his age. Continue the present management and the patient definitely need neurological followup evaluation as an outpatient for his vascular dementia as well as possible sleep-related breathing disorder. Austen Toussaint MD
[2017-08-20] MEDS: INSULIN DEGLUDEC 100 UNIT/ML SC SCH (21:40)
--- NOTE | 2017-08-20 22:52 | CP.PCM.PN ---
Subjective - Date & Time of Evaluation Date of Evaluation: 08/20/17 Time of Evaluation: 18:30 - Subjective Subjective: Patient seen and evaluated Denies chest pain, dizziness and dyspne D/W at bedside and answered questions Objective - Vital Signs/Intake and Output Vital Signs (last 24 hours): Temp Pulse Resp BP Pulse Ox 98.5 F 67 16 155/65 H 97 08/20/17 20:00 08/20/17 22:00 08/20/17 22:00 08/20/17 20:34 08/20/17 22:00 Intake and Output: 08/20/17 08/21/17 18:59 06:59 Intake Total 850 Output Total 750 Balance 100 - Medications Medications: Current Medications Aspirin (Ecotrin) 81 mg PO DAILY [facility] Last Admin: 08/20/17 09:15 Dose: 81 mg Clopidogrel Bisulfate (Plavix) 75 mg PO DAILY [facility] Last Admin: 08/20/17 09:14 Dose: 75 mg Enoxaparin Sodium (Lovenox) 40 mg SC DAILY [facility] Last Admin: 08/20/17 09:15 Dose: 40 mg Famotidine (Pepcid) 20 mg PO Q24H [facility] Home Med (Patient's Own Medication) 1 tab PO DAILY [facility] Last Admin: 08/20/17 09:15 Dose: 1 tab Home Med (Patient's Own Injectable) 20 unit SC [facility] Last Admin: 08/20/17 21:40 Dose: 20 unit Insulin Human Regular (Novolin R) 0 unit SC [facility] PRN Reason: Protocol Last Admin: 08/20/17 17:55 Dose: 3 unit Lactulose (Enulose) 20 gm PO Q8H [facility] Last Admin: 08/20/17 18:46 Dose: Not Given Ondansetron HCl (Zofran Inj) 2 mg IVP Q6H PRN PRN Reason: Nausea/Vomiting Last Admin: 08/18/17 11:43 Dose: 2 mg Oxybutynin Chloride (Ditropan Tab) 5 mg PO DAILY [facility] Last Admin: 08/20/17 09:14 Dose: 5 mg Rosuvastatin Calcium (Crestor) 5 mg PO [facility] Last Admin: 08/14/17 22:59 Dose: 5 mg - Labs Labs: 08/17/17 06:34 08/17/17 06:34 PT 11.4 SECONDS (9.7-12.2) 08/14/17 15:40 INR 1.0 08/14/17 15:40 APTT 32 SECONDS (21-34) 08/14/17 15:40
[2017-08-21] MEDS ORDERED: Patient's Own Injectable SC SCH (00:26)
[2017-08-21] MEDS ORDERED: Patient's Own Injectable SC STA (00:26)
--- NOTE | 2017-08-21 00:29 | CP.PCM.PN ---
Subjective - Date & Time of Evaluation Date of Evaluation: 08/20/17 Time of Evaluation: 20:10 - Subjective Subjective: Pt seen by PT and ambulated thourout the whole unit. Complained of diplopia during his therapy, but was able to finish the whole activity without any problems. VS remained stable, with no dizziness nor any new weakness. As explained yesterday, the site of patient's diplopia is in one of 2 places in which can produce this symptom. > Otherwise, pt was referred to and accepted at [facility] but awaiting [facility] for approval . Objective - Vital Signs/Intake and Output Vital Signs (last 24 hours): Temp Pulse Resp BP Pulse Ox 98.5 F 67 16 155/65 H 97 08/20/17 20:00 08/20/17 22:00 08/20/17 22:00 08/20/17 20:34 08/20/17 22:00 Intake and Output: 08/20/17 08/21/17 18:59 06:59 Intake Total 850 Output Total 750 Balance 100 - Medications Medications: Current Medications Aspirin (Ecotrin) 81 mg PO DAILY [facility] Last Admin: 08/20/17 09:15 Dose: 81 mg Clopidogrel Bisulfate (Plavix) 75 mg PO DAILY [facility] Last Admin: 08/20/17 09:14 Dose: 75 mg Enoxaparin Sodium (Lovenox) 40 mg SC DAILY [facility] Last Admin: 08/20/17 09:15 Dose: 40 mg Famotidine (Pepcid) 20 mg PO Q24H [facility] Home Med (Patient's Own Medication) 1 tab PO DAILY [facility] Last Admin: 08/20/17 09:15 Dose: 1 tab Home Med (Patient's Own Injectable) 25 unit SC HS [facility] Home Med (Patient's Own Injectable) 5 unit SC [facility] Stop: 08/21/17 00:27 Insulin Human Regular (Novolin R) 0 unit SC ACHS [facility] PRN Reason: Protocol Last Admin: 08/20/17 17:55 Dose: 3 unit Lactulose (Enulose) 20 gm PO Q8H [facility] Last Admin: 08/20/17 18:46 Dose: Not Given Ondansetron HCl (Zofran Inj) 2 mg IVP Q6H PRN PRN Reason: Nausea/Vomiting Last Admin: 08/18/17 11:43 Dose: 2 mg Oxybutynin Chloride (Ditropan Tab) 5 mg PO DAILY [facility] Last Admin: 08/20/17 09:14 Dose: 5 mg Rosuvastatin Calcium (Crestor) 5 mg PO HS [facility] Last Admin: 08/14/17 22:59 Dose: 5 mg - Labs Labs: 08/17/17 06:34 08/17/17 06:34 PT 11.4 SECONDS (9.7-12.2) 08/14/17 15:40 INR 1.0 08/14/17 15:40 APTT 32 SECONDS (21-34) 08/14/17 15:40 - Constitutional Appears: No Acute Distress - Head Exam Head Exam: NORMAL INSPECTION - Eye Exam Eye Exam: Normal appearance Additional comments: exotrpic L eye - ENT Exam ENT Exam: Mucous Membranes Moist - Neck Exam Neck Exam: Full ROM - Respiratory Exam Respiratory Exam: Clear to Ausculation Bilateral, NORMAL BREATHING PATTERN - Cardiovascular Exam Cardiovascular Exam: REGULAR RHYTHM - GI/Abdominal Exam GI & Abdominal Exam: Soft, Normal Bowel Sounds - Rectal Exam Rectal Exam: Deferred - Exam External exam: Ecchymosis - Extremities Exam Extremities Exam: Full ROM, Normal Capillary Refill, Normal Inspection - Back Exam Back Exam: NORMAL INSPECTION - Neurological Exam Neurological Exam: Alert, Awake, CN II-XII Intact, Oriented x3 Neuro motor strength exam: Left Upper Extremity: 4, Right Upper Extremity: 3, Left Lower Extremity: 4, Right Lower Extremity: 4 - Psychiatric Exam Psychiatric exam: absent: Normal Affect - Skin Skin Exam: Dry, Intact, Normal Color, Warm Assessment and Plan (1) Diabetes mellitus Status: Chronic (2) Hypertension, uncontrolled Status: Chronic (3) CVA (cerebral vascular accident) Assessment & Plan: subacute CVA0 with diplopia Status: Acute (4) Dizziness Assessment & Plan: described as lightheadedness. appears improved with increase in heart rate to normal. Status: Acute
[2017-08-21] MEDS: (Novolin R) Insulin Human Regular 100 units/ml vial SC SCH ×3 (08:18→16:03)
[2017-08-21 08:34] VITALS: O2SAT 95
[2017-08-21] MEDS: Enoxaparin 40 mg Syringe SC SCH (09:54)
--- NOTE | 2017-08-21 12:02 | PN ---
DATE: 08/21/2017 NEUROLOGICAL PROBLEM: Brainstem stroke and right subcortical new stroke. PHYSICAL EXAMINATION: GENERAL: The patient is sitting in the cardiac chair and eyes are open, left palpable fissure is smaller because of diplopia. He closes his eye voluntarily. He was ambulating good with physical therapy yesterday. VITAL SIGNS: Blood pressure 132/65, mean artery pressure of 87, pulse rate 80, respiratory rate 18, temperature 98.7. HEENT: He has still persistent left lateral gaze, horizontal diplopia. Mildly dysmetria on his left side. Rest of the examination is unchanged to compare with the previous examination. The patient's clinical examination is consistent with left lower brainstem stroke consistent with involving possible lower cerebral peduncle affecting the sixth nerve as well as the lower corticospinal tract. Bilateral Babinski sign is probably secondary to his other stroke on his right subcortical region. The patient also showed multiple ischemic changes which has been going on for a long time concerning his changes and his age. This is probably a vascular dementia as well. However, his dementia on examination is more than normal for his age. The patient is neurologically stable, can be released to go for acute rehabilitation, stroke prophylaxis as he has been getting dual anti-platelets, angiotensin receptor nelson and statin should be continued. The patient can wear eye glasses with patches on his left eye, that could eliminate his double vision. The application of the tape in the glass has been discussed with his homemaker. He agreed to my recommendation. The patient will be followed if he stays further in the hospital. Otherwise, the patient is recommended to go for acute rehab and should have a followup visit with me as outpatient for his further evaluation to stabilize his metabolic problem as well as sleep-related breathing disorder. Austen Toussaint MD
--- NOTE | 2017-08-21 15:53 | CP.PCM.PN ---
Subjective - Date & Time of Evaluation Date of Evaluation: 08/21/17 Time of Evaluation: 15:51 - Subjective Subjective: PT STABLE TODAY; TOLERATED PHY THER WELL. NAD OR COMPLAINTS. PER TERA PATTERSON PT NOW HAS AUTH FOR REHAB AT [facility]. DISCUSSED D/C PLAN WITH DR. SANTIAGO AND OK TO D/ C. PT TO BE PLACED UNDER HIS SERVICE. MEDS FOR D/C REVIEWED W DR. SANTIAGO. TERA TO ARRANGED TRANSPORTATION TO [facility] THIS AFTERNOON. NO FURTHER ORDERS. Objective - Vital Signs/Intake and Output Vital Signs (last 24 hours): Temp Pulse Resp BP Pulse Ox 98.0 F 67 14 150/63 95 08/21/17 12:00 08/21/17 12:00 08/21/17 12:00 08/21/17 12:00 08/21/17 12:00 Intake and Output: 08/21/17 08/21/17 06:59 18:59 Intake Total 0 Balance 0 - Medications Medications: Current Medications Aspirin (Ecotrin) 81 mg PO DAILY [facility] Last Admin: 08/21/17 09:54 Dose: 81 mg Clopidogrel Bisulfate (Plavix) 75 mg PO DAILY [facility] Last Admin: 08/21/17 09:55 Dose: 75 mg Enoxaparin Sodium (Lovenox) 40 mg SC DAILY [facility] Last Admin: 08/21/17 09:54 Dose: 40 mg Famotidine (Pepcid) 20 mg PO Q24H [facility] Last Admin: 08/21/17 12:06 Dose: 20 mg Home Med (Patient's Own Medication) 1 tab PO DAILY [facility] Last Admin: 08/21/17 09:55 Dose: 1 tab Home Med (Patient's Own Injectable) 25 unit SC HS [facility] Insulin Human Regular (Novolin R) 0 unit SC ACHS [facility] PRN Reason: Protocol Last Admin: 08/21/17 12:06 Dose: 4 unit Lactulose (Enulose) 20 gm PO Q8H [facility] Last Admin: 08/21/17 12:07 Dose: Not Given Ondansetron HCl (Zofran Inj) 2 mg IVP Q6H PRN PRN Reason: Nausea/Vomiting Last Admin: 08/18/17 11:43 Dose: 2 mg Oxybutynin Chloride (Ditropan Tab) 5 mg PO DAILY [facility] Last Admin: 08/21/17 09:54 Dose: 5 mg Rosuvastatin Calcium (Crestor) 5 mg PO HS [facility] Last Admin: 08/14/17 22:59 Dose: 5 mg - Labs Labs: 08/17/17 06:34 08/17/17 06:34 PT 11.4 SECONDS (9.7-12.2) 08/14/17 15:40 INR 1.0 08/14/17 15:40 APTT 32 SECONDS (21-34) 08/14/17 15:40
[2017-08-21 17:22] VITALS: BP 158/74; PULSE 73; RESP 16; TEMP 97.7
--- NOTE | 2017-08-24 04:02 | CP.PCM.DIS ---
Provider - Provider Date of Admission: 08/15/17 13:13 Attending physician: Ian Koenig MD Primary care physician: Ian Koenig MD Consults: Juan Bustos MD Time Spent in preparation of Discharge (in minutes): 45 Diagnosis - Discharge Diagnosis (1) Dizziness Status: Acute Priority: High Comment: described as lightheadedness, and major contributor was sinus bradycardia (2) Sinus bradycardia Status: Resolved Comment: prob iatrogenic 2ndry to increase in beta-blockade in attempt to achieve hypertension goal. pt sensitive to blockade of adrenergic system patricia with vasodilator on board. (3) CVA (cerebral vascular accident) Status: Acute Comment: pt's dizziness ( lightheadedness) morphed into diplopia (4) Diabetes mellitus Status: Chronic Priority: High Comment: intially hypoglycemic, BS climbed necessitating restarting pt's long acting insulin, Tresiba (5) Hypertension, uncontrolled Status: Chronic Priority: Medium Comment: ran high at start of admission but finallly settled at acceptable levels patricia post-CVA (6) Weakness generalized Status: Chronic Priority: Medium Comment: dissipated since pt able to eat when all oter symptoms resolved Hospital Course - Lab Results Lab Results: Micro Results 08/15/17 03:59 Urine Urine Culture - Final No Growth (<1,000 CFU/ML) 08/15/17 03:31 Naris MRSA Culture (Admit) - Final MRSA NOT DETECTED Most Recent Lab Values WBC 6.4 K/uL (4.8-10.8) 08/17/17 06:34 RBC 4.23 Mil/uL (4.40-5.90) L 08/17/17 06:34 Hgb 13.1 g/dL (12.0-18.0) 08/17/17 06:34 Hct 38.9 % (35.0-51.0) 08/17/17 06:34 MCV 92.0 fL (80.0-94.0) 08/17/17 06:34 MCH 31.0 pg (27.0-31.0) 08/17/17 06:34 MCHC 33.7 g/dL (33.0-37.0) 08/17/17 06:34 RDW 15.6 % (11.5-14.5) H 08/17/17 06:34 Plt Count 239 K/uL (130-400) 08/17/17 06:34 MPV 7.9 fL (7.2-11.7) 08/17/17 06:34 Neut % (Auto) 80.2 % (50.0-75.0) H 08/17/17 06:34 Lymph % (Auto) 11.6 % (20.0-40.0) L 08/17/17 06:34 Piatt % (Auto) 7.7 % (0.0-10.0) 08/17/17 06:34 Eos % (Auto) 0.1 % (0.0-4.0) 08/17/17 06:34 Baso % (Auto) 0.4 % (0.0-2.0) 08/17/17 06:34 Neut # (Auto) 5.1 K/uL (1.8-7.0) 08/17/17 06:34 Lymph # (Auto) 0.7 K/uL (1.0-4.3) L 08/17/17 06:34 Piatt # (Auto) 0.5 K/uL (0.0-0.8) 08/17/17 06:34 Eos # (Auto) 0.0 K/uL (0.0-0.7) 08/17/17 06:34 Baso # (Auto) 0.0 K/uL (0.0-0.2) 08/17/17 06:34 PT 11.4 SECONDS (9.7-12.2) 08/14/17 15:40 INR 1.0 08/14/17 15:40 APTT 32 SECONDS (21-34) 08/14/17 15:40 Sodium 138 mmol/L (132-148) 08/17/17 06:34 Potassium 3.7 mmol/L (3.6-5.2) 08/17/17 06:34 Chloride 101 mmol/L (98-107) 08/17/17 06:34 Carbon Dioxide 27 mmol/L (22-30) 08/17/17 06:34 Anion Gap 14 (10-20) 08/17/17 06:34 BUN 22 mg/dL (9-20) H 08/17/17 06:34 Creatinine 0.7 mg/dL (0.8-1.5) L 08/17/17 06:34 Est GFR ( Amer) > 60 08/17/17 06:34 Est GFR (Non-Af Amer) > 60 08/17/17 06:34 POC Glucose (mg/dL) 224 mg/dL (65-110) H 08/21/17 15:44 Random Glucose 222 mg/dL (75-110) H 08/17/17 06:34 Hemoglobin A1c 8.9 % (4.2-6.5) H 08/17/17 20:36 Calcium 8.1 mg/dl (8.6-10.4) L 08/17/17 06:34 Total Bilirubin 0.6 mg/dL (0.2-1.3) 08/17/17 06:34 GGT 16 U/L (8-78) 08/15/17 06:49 AST 25 U/L (17-59) 08/17/17 06:34 ALT 18 U/L (21-72) L 08/17/17 06:34 Alkaline Phosphatase 49 U/L (38-126) 08/17/17 06:34 Total Creatine Kinase 32 U/L (55-170) L 08/14/17 21:45 CK-MB (Mass) 0.35 ng/mL (0.0-3.38) 08/14/17 21:45 Troponin I < 0.0120 ng/mL (0.00-0.120) 08/15/17 06:49 NT-Pro-B Natriuret Pep 73.4 pg/mL (0-900) 08/15/17 06:49 Total Protein 6.7 g/dL (6.3-8.3) 08/17/17 06:34 Albumin 3.6 g/dL (3.5-5.0) 08/17/17 06:34 Globulin 3.1 gm/dL (2.2-3.9) 08/17/17 06:34 Albumin/Globulin Ratio 1.1 (1.0-2.1) 08/17/17 06:34 Triglycerides 127 mg/dL (0-149) D 08/15/17 06:49 Cholesterol 172 mg/dL (0-199) 08/15/17 06:49 LDL Cholesterol Direct 98 mg/dL (0-129) 08/15/17 06:49 HDL Cholesterol 40 mg/dL (30-70) 08/15/17 06:49 Amylase 90 U/L (30-110) 08/15/17 06:49 Lipase 66 U/L (23-300) 08/15/17 06:49 Vitamin B12 594 pg/mL (239-931) 08/17/17 20:36 Folate > 20.0 ng/mL 08/17/17 20:36 Homocysteine 7.6 umol/L (6.6-14.8) 08/17/17 20:36 Free T4 1.82 ng/dL (0.78-2.19) 08/17/17 20:36 TSH 3rd Generation 0.87 mIU/L (0.46-4.68) 08/17/17 20:36 Urine Color Yellow (YELLOW) 08/15/17 04:27 Urine Clarity Clear (Clear) 08/15/17 04:27 Urine pH 6.0 (5.0-8.0) 08/15/17 04:27 Ur Specific [place] 1.025 (1.003-1.030) 08/15/17 04:27 Urine Protein 1+ mg/dL (NEGATIVE) H 08/15/17 04:27 Urine Glucose (UA) 2+ mg/dL (Normal) H 08/15/17 04:27 Urine Ketones Negative mg/dL (NEGATIVE) 08/15/17 04:27 Urine Blood Negative (NEGATIVE) 08/15/17 04:27 Urine Nitrate Negative (NEGATIVE) 08/15/17 04:27 Urine Bilirubin Negative (NEGATIVE) 08/15/17 04:27 Urine Urobilinogen Normal mg/dL (0.2-1.0) 08/15/17 04:27 Ur Leukocyte Esterase Neg Sameera/uL (Negative) 08/15/17 04:27 Urine WBC (Auto) < 1 /hpf (0-5) 08/15/17 04:27 Urine RBC (Auto) < 1 /hpf (0-3) 08/15/17 04:27 RPR Nonreactive (NONREACTIVE) 08/17/17 20:36 Discharge Exam - Head Exam Head Exam: NORMAL INSPECTION Discharge Plan - Discharge Medications Prescriptions: Docusate [Colace] 100 mg PO TID 30 Days cap Valsartan 160 mg PO DAILY 30 Days tablet - Follow Up Plan Condition: STABLE Disposition: REHAB FACILITY/REHAB UNIT Instructions: Stroke (DC), Transient Ischemic Attack (DC), Controlling Your Blood Pressure Through Lifestyle, Lowering the Risk of Having Another Stroke Additional Instructions: -PLACE UNDER THE SERVICE OF DR. Jarod KOENIG WHILE AT [facility] FOR [facility]---CALL UPON ARRIVAL FOR ADMITTING ORDERS. -CONTINUE MEDICATIONS PER THE MED REC FORM--CHANGES CAN BE MADE BY DR. KOENIG. -CONTINUE COLACE AND LACTULOSE ORDERED; HOLD AND NOTIFY DR. KOENIG IF DIARRHEA OR LOOSE STOOL OCCURS. -PHYSICAL THERAPY TOLERATED. -AFTER D/C FROM [facility], PLEASE INSTRUCT MR. LOPEZ TO FOLLOW UP WITH DR. CHISHOLM (FUEL CELL BUILDER) AND DR. BUSTOS (NEUROLOGIST). -FOR FURTHER ORDERS, CONTACT DR. KOENIG'S OFFICE. Referrals: Vic Chisholm MD [Staff Provider] - Ian Koenig MD [Staff Provider] - Austen Bustos MD [Staff Provider] -
--- NOTE | 2017-09-06 13:45 | CARDCATH ---
PROCEDURE DATE:08/15/2017 INDICATIONS: Recurrent dizziness. PROCEDURE: The patient was put on table and tilted at around 30 degrees for 5 minutes and 60 degrees for 15 minutes. Blood pressure and heart rate response were monitored every 2 minutes. The patient tolerated the procedure well. There was an increase in heart rate of 3 beats per minute and . There was a 34 mmHg drop in blood pressure noted. The rise in heart rate and drop in blood pressure were noted to be slow and not precipitant. 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 Orthostatic hypotension is likely. Anneliese Price MD
== END 2017-08-21 17:20 | DRG 309 ==
LOC: C.ER 14:13 → C.9I 16:48 → C.9E 16:48 → OBSVTOIN 08-15 13:13
PROVIDERS: ADMIT Family Medicine; ATTEND Family Medicine
PROC: 4A02XFZ Measurement of Cardiac Rhythm, External Approach (ICD-10-PCS; principal; 2017-08-15)
PROC: 4A03XB1 Measurement of Arterial Pressure, Peripheral, External Approach (ICD-10-PCS; 2017-08-15)
DX: R00.1 Bradycardia, unspecified (principal); G45.9 Transient cerebral ischemic attack, unspecified; E11.649 Type 2 diabetes mellitus with hypoglycemia without coma; I95.1 Orthostatic hypotension; T44.7X5A Adverse effect of beta-adrenoreceptor antagonists, initial encounter; E11.65 Type 2 diabetes mellitus with hyperglycemia; E78.5 Hyperlipidemia, unspecified; E11.40 Type 2 diabetes mellitus with diabetic neuropathy, unspecified; F01.50 Vascular dementia, unspecified severity, without behavioral disturbance, psychotic disturbance, mood disturbance, and anxiety; I10 Essential (primary) hypertension; K59.00 Constipation, unspecified; K21.9 Gastro-esophageal reflux disease without esophagitis; Z85.46 Personal history of malignant neoplasm of prostate; Z87.891 Personal history of nicotine dependence; Z95.1 Presence of aortocoronary bypass graft; Z86.73 Personal history of transient ischemic attack (TIA), and cerebral infarction without residual deficits; I25.2 Old myocardial infarction; H53.2 Diplopia; Z79.4 Long term (current) use of insulin